=== PATIENT | female | born 1960 | race Two or more races ===

== ENCOUNTER 2020-06-18 10:11 | Outpatient (CLI) | payer OTHER | END 2020-06-18 10:16 | disposition home or self-care (01) | LOC: SONOGRAMA 10:11 | PROVIDERS: ATTEND Pathology Anatomic Pathology & Clinical Pathology | DX: D34 Benign neoplasm of thyroid gland (principal); E04.1 Nontoxic single thyroid nodule; E06.3 Autoimmune thyroiditis ==

== ENCOUNTER 2022-11-03 07:27 | Outpatient (CLI) | payer OTHER | END 2022-11-03 07:37 | disposition home or self-care (01) | LOC: TOM 07:27 | PROVIDERS: ATTEND Internal Medicine Gastroenterology | DX: R93.3 Abnormal findings on diagnostic imaging of other parts of digestive tract (principal); K56.699 Other intestinal obstruction unspecified as to partial versus complete obstruction; R19.4 Change in bowel habit ==